=== PATIENT | female | born 1945 | race Caucasian/White ===

== ENCOUNTER 2021-05-31 09:54 | Inpatient (IN) | payer OTHER ==
--- NOTE | 2021-05-31 10:46 | ER ---
Nurse's Notes [facility] Name: Bill Deal Age: 75 yrs Sex: Female : 1945 Arrival Date: 05/31/2021 Time: 09:56 Bed 8 Private MD: Diagnosis: Low back pain Presentation: 05/31 09:56 Chief complaint: EMS states: Low back pain x 1 month, called Dr. Taveras and he jl7 instructed pt to go to ER for admit. Pain 10/10 on arrival, gave 50 mcg Fentanyl IVP and pain now 3/10. Coronavirus screen: Vaccine status: Patient reports receiving the 2nd dose of the covid vaccine. Moderna At this time, the client does not indicate any symptoms associated with coronavirus-19. Ebola Screen: No symptoms or risks identified at this time. Initial Sepsis Screen: Does the patient meet any 2 criteria? No. Patient's initial sepsis screen is negative. Does the patient have a suspected source of infection? No. Patient's initial sepsis screen is negative. Risk Assessment: Do you want to hurt yourself or someone else? Patient reports no desire to harm self or others. Onset of symptoms was May 01, 2021. 09:56 Method Of Arrival: EMS: [facility] jl7 09:56 Acuity: UDAY 3 jl7 10:02 Care prior to arrival: Medication(s) given: zofran 4 mg, 50 mcg fentanyl IV initiated. jl7 in the right antecubital area, Glucose check: 177. Triage Assessment: 10:03 General: Appears in no apparent distress. uncomfortable, Behavior is calm, cooperative, jl7 appropriate for age. Pain: Complains of pain in low back area Pain does not radiate. Pain currently is 3 out of 10 on a pain scale. at worst was 10 out of 10 on a pain scale. Neuro: Level of Consciousness is awake, alert, obeys commands, Oriented to person, place, time, situation. Cardiovascular: Patient's skin is warm and dry. Respiratory: Airway is patent Respiratory effort is even, unlabored, Respiratory pattern is regular, symmetrical. Derm: Skin is pink, warm \T\ dry. Musculoskeletal: Swelling absent. Historical: - Allergies: 10:03 PENICILLINS; jl7 - Home Meds: 10:03 duloxetine oral [Active]; [place] Oral [Active]; levetiracetam oral [Active]; ropinirole jl7 oral [Active]; Tramadol Oral [Active]; - PMHx: 10:03 restless leg syndrome; jl7 - Immunization history:: Adult Immunizations up to date. - Social history:: Smoking status: Patient denies any tobacco usage or history of. Screenin:36 Abuse screen: Denies threats or abuse. Denies injuries from another. Nutritional jl7 screening: No deficits noted. Tuberculosis screening: No symptoms or risk factors identified. Fall Risk IV access (20 points). Total Muro Fall Scale indicates No Risk (0-24 pts). Assessment: 10:36 General: See triage assessment. jl7 Vital Signs: 09:56 BP 173 / 67; Pulse 92; Resp 18; Temp 98.3; Pulse Ox 92% ; Weight 81.65 kg; Pain 3/10; jl7 10:55 BP 177 / 80; Pulse 88; Resp 19; Pulse Ox 97% ; jl7 13:30 BP 174 / 74; Pulse 85; Resp 15; Pulse Ox 98% ; jl7 ED Course: 09:56 Patient arrived in ED. jl7 10:01 Triage completed. jl7 10:02 Nicho Mata RN is Primary Nurse. jl7 10:03 Arm band placed on right wrist. jl7 10:08 Logan Park MD is Attending Physician. sp3 10:36 Patient has correct armband on for positive identification. Bed in low position. Call jl7 light in reach. Side rails up X2. Pulse ox on. NIBP on. Warm blanket given. 10:45 Qamar Taveras MD is Hospitalizing Provider. sp3 10:55 Initial lab(s) drawn, by ri, sent to lab. Maintain EMS IV. Dressing intact. Good blood jl7 return noted. Site clean \T\ dry. Gauge \T\ site: 20 R AC. 13:48 No provider procedures requiring assistance completed. Patient admitted, IV remains in jl7 place. intact, No redness/swelling at site. Administered Medications: 11:12 Drug: Zofran (Ondansetron) 4 mg Route: IVP; Site: right forearm; bp 13:48 Follow up: Response: No adverse reaction jl7 11:12 Drug: Dilaudid (HYDROmorphone) 1 mg Route: IVP; Site: right forearm; bp 11:40 Follow up: Response: No adverse reaction; Pain is decreased jl7 Outcome: 10:45 Decision to Hospitalize by Provider. sp3 13:48 Admitted to Med/surg accompanied by gilmar, via stretcher, room 209, with chart, Report jl7 called to JC Mariano 13:48 Condition: stable 13:48 Discharge instructions given to patient, family, Instructed on the need for admit, Demonstrated understanding of instructions. 14:18 Patient left the ED. [email or web address] Signatures: Nicho Mata RN RN jl7 John Grullon, RN RN bp Logan Park MD MD sp3 Corrections: (The following items were deleted from the chart) 10:06 10:03 PMHx: resless leg; jl7 jl7
--- NOTE | 2021-05-31 10:46 | EDPHYS ---
Physician Documentation [facility] Name: Bill Deal Age: 75 yrs Sex: Female : 1945 Arrival Date: 05/31/2021 Time: 09:56 Bed 8 Private MD: ED Physician Logan Park HPI: 05/31 10:41 This 75 yrs old Female presents to ER via EMS with complaints of Back Pain. [facility] 10:41 35-year-old female with chronic back pain over the last several weeks was been seen at [address] with a negative MRI this was here approximately 5 days ago with negative x-rays and work-up now returns for continued back pain. Spoke with Dr. Taveras her PCP who will be admitting her for further work-up. Patient received fentanyl via EMS which has relieved her pain at this time. Patient is pain-free at the moment. On review of systems, patient denies loss of bowel or bladder, neuro symptoms, chest pain, abdominal pain, any other symptoms at this time.. Historical: - Allergies: 10:03 PENICILLINS; jl7 - Home Meds: 10:03 duloxetine oral [Active]; [place] Oral [Active]; levetiracetam oral [Active]; ropinirole jl7 oral [Active]; Tramadol Oral [Active]; - PMHx: 10:03 restless leg syndrome; jl7 - Immunization history:: Adult Immunizations up to date. - Social history:: Smoking status: Patient denies any tobacco usage or history of. ROS: 10:43 Constitutional: Negative for fever, chills, and weight loss, Cardiovascular: Negative sp3 for chest pain, palpitations, and edema, Respiratory: Negative for shortness of breath, cough, wheezing, and pleuritic chest pain, Abdomen/GI: Negative for abdominal pain, nausea, vomiting, diarrhea, and constipation, : Negative for injury, bleeding, discharge, and swelling, Neuro: Negative for headache, weakness, numbness, tingling, and seizure, Psych: Negative for depression, anxiety, suicide ideation, homicidal ideation, and hallucinations, Endocrine: Negative for neck swelling, polydipsia, polyuria, polyphagia, and marked weight changes, Hematologic/Lymphatic: Negative for swollen nodes, abnormal bleeding, and unusual bruising. 10:43 All other systems are negative. Exam: 10:43 Constitutional: This is a well developed, well nourished patient who is awake, alert, sp3 and in no acute distress. Head/Face: Normocephalic, atraumatic. Chest/axilla: Normal chest wall appearance and motion. Nontender with no deformity. No lesions are appreciated. Cardiovascular: Regular rate and rhythm with a normal S1 and S2. No gallops, murmurs, or rubs. Normal PMI, no JVD. No pulse deficits. Respiratory: Lungs have equal breath sounds bilaterally, clear to auscultation and percussion. No rales, rhonchi or wheezes noted. No increased work of breathing, no retractions or nasal flaring. Abdomen/GI: Soft, non-tender, with normal bowel sounds. No distension or tympany. No guarding or rebound. No evidence of tenderness throughout. Neuro: Awake and alert, GCS 15, oriented to person, place, time, and situation. Cranial nerves II-XII grossly intact. Motor strength 5/5 in all extremities. Sensory grossly intact. Cerebellar exam normal. Normal gait. 10:43 Back: Patient was not rolled over to assess the lower back secondary to her being pain-free at the moment. Patient requested that she be left alone.. Vital Signs: 09:56 BP 173 / 67; Pulse 92; Resp 18; Temp 98.3; Pulse Ox 92% ; Weight 81.65 kg; Pain 3/10; jl7 10:55 BP 177 / 80; Pulse 88; Resp 19; Pulse Ox 97% ; jl7 13:30 BP 174 / 74; Pulse 85; Resp 15; Pulse Ox 98% ; jl7 MDM: 10:26 Patient medically screened. sp3 10:44 Data reviewed: vital signs, nurses notes. ED course: Discussed with patient's PCP who sp3 states that he will be faxing over admission orders to the household refrigerator mechanic. Routine labs have been placed and patient is pain-free at the moment. No other intervention is indicated in the ER and further work-up will be handled in the inpatient side.. 05/31 10:38 Order name: Basic Metabolic Panel sp3 05/31 10:38 Order name: CBC with Diff sp3 05/31 10:38 Order name: Hepatic Function sp3 05/31 10:38 Order name: Lipase sp3 05/31 11:07 Order name: COVID-19/FLU A+B/RSV EDMS 05/31 10:38 Order name: IV Saline Lock; Complete Time: 10:55 sp3 05/31 10:38 Order name: Labs collected and sent; Complete Time: 10:55 sp3 Administered Medications: 11:12 Drug: Zofran (Ondansetron) 4 mg Route: IVP; Site: right forearm; bp 13:48 Follow up: Response: No adverse reaction jl7 11:12 Drug: Dilaudid (HYDROmorphone) 1 mg Route: IVP; Site: right forearm; bp 11:40 Follow up: Response: No adverse reaction; Pain is decreased jl7 Disposition Summary: 05/31/21 10:45 Hospitalization Ordered Hospitalization Status: Observation sp3 Provider: Qamar Taveras sp3 Location: Telemetry/MedSurg (observation) sp3 Condition: Stable sp3 Problem: new sp3 Symptoms: have worsened sp3 Bed/Room Type: Standard sp3 Room Assignment: [facility](05/31/21 13:23) Diagnosis - Low back pain sp3 Forms: - Medication Reconciliation Form sp3 - SBAR form sp3 Signatures: Dispatcher [employer] EDMS Cecily Pacheco RN RN ss Nicho Mata RN RN John Zuluaga, RN RN Logan Nguyễn MD MD sp3 Corrections: (The following items were deleted from the chart) 10:06 10:03 PMHx: resless leg; jl7 jl7 11:07 10:55 CORONAVIRUS+MR.LAB.DAVE ordered. EDMS EDMS 13:23 10:45 sp3 ss
[2021-05-31 11:09] LABS: Absolute Lymphocytes (CBC) 1.6 K/uL (0.7-4.9); Basophils % 0.3 % (0-1.3); Hematocrit 39.6 % (36.0-45.0); Lymphocytes % 13.7 % (15.3-44.8); MPV 8.2 fL (7.6-11.3); RBC Red Blood Cell Count 4.59 M/uL (3.86-4.86)
[2021-05-31] MEDS ORDERED: ONDANSETRON 4 MG/2 ML VIAL ONE (11:34)
[2021-05-31] MEDS ORDERED: HYDROMORPHONE HCL 1 MG/ML INJ ONE (11:34)
[2021-05-31 11:47] LABS: SARS-COV-2 RT PCR NEGATIVE (NEGATIVE)
[2021-05-31 12:08] LABS: Bilirubin Direct 0.1 mg/dL (0-0.2); Bilirubin Total 0.4 mg/dL (0.2-1.0); Potassium 4.2 mmol/L (3.5-5.1); Protein, Total 7.2 g/dL (6.4-8.2)
[2021-05-31] MEDS ORDERED: HYDROMORPHONE HCL 1 MG/ML INJ IV PRN (15:15)
[2021-05-31] MEDS ORDERED: GLUCAGON 1 MG/VIAL IM PRN (15:40)
[2021-05-31] MEDS ORDERED: D50W 25 GM/50 ML SYRINGE IV PRN (15:40)
[2021-05-31] MEDS ORDERED: ONDANSETRON 4 MG (ODT) TAB PO PRN (16:00)
[2021-05-31] MEDS ORDERED: ACETAMINOPHEN 325 MG TABLET PO PRN (16:00)
[2021-05-31] MEDS ORDERED: DIPHENHYDRAMINE 25 MG TAB/CAP PO PRN (16:00)
[2021-05-31] MEDS ORDERED: LOPERAMIDE HCL 2 MG CAPSULE PO PRN (16:00)
[2021-05-31] MEDS ORDERED: POLYETHYL GLY 3350 17 GM/DOSE PO PRN (16:00)
[2021-05-31] MEDS ORDERED: ONDANSETRON 4 MG/2 ML VIAL IV PRN (16:00)
[2021-05-31] MEDS ORDERED: MAGIC MOUTHWASH 180 ML BTL PO PRN (16:29)
[2021-05-31] MEDS ORDERED: LORAZEPAM 0.5 MG TABLET PO PRN (16:29)
[2021-05-31] MEDS: INSULIN -REGULAR HUMAN 50 UNIT/0.5 ML ML SQ SCH ×2 (16:30→22:15)
--- NOTE | 2021-05-31 16:58 | RAD REPORT ---
EXAM DESCRIPTION: CT - Abdomen Pelvis W Contrast - 05/31/2021 4:35 pm CLINICAL HISTORY: Abdominal pain/back pain COMPARISON: none. TECHNIQUE: Computed axial tomography of the abdomen pelvis was obtained. 100 cc Isovue-300 was admin istered intravenously. Oral contrast was not requested which limits evaluation of bowel. All CT scans are performed using dose optimization technique as appropriate and may include automated exposure control or mA/KV adjustment according to patient size. FINDINGS: The hepatic cyst. Cholecystectomy. Spleen, pancreas, adrenal and kidneys appear unremarkable. There is no evidence of diverticulitis. Hysterectomy. No adnexal mass. Small umbilical hernia IMPRESSION: No acute abnormality is displayed.
--- NOTE | 2021-05-31 16:59 | RAD REPORT ---
EXAM DESCRIPTION: Rolando Single View05/31/2021 4:15 pm CLINICAL HISTORY: sob COMPARISON: 2019 FINDINGS: The lungs appear clear of acute infiltrate. The heart is normal size IMPRESSION: No acute abnormalities displayed
[2021-05-31] MEDS: NACHLORIDE 0.45% 1,000 ML IV SCH (17:19)
[2021-05-31 19:00] LABS: Phosphorus 3.6 mg/dL (2.5-4.9); Thyroid Stimulating Hormone 0.877 uIU/mL (0.360-3.740)
[2021-05-31] MEDS ORDERED: METAXALONE 800 MG TAB PO PRN (19:00)
[2021-05-31] MEDS ORDERED: INFLUENZA VACCINE (for 6+ mo) 0.5 ML DOSE IMVAC ONE (20:00)
[2021-05-31] MEDS: dexAMETHasone 10 MG/ML VIAL IV SCH (20:45)
[2021-05-31] MEDS ORDERED: ROPINIROLE HCL 2 MG PO SCH (21:00)
[2021-05-31] MEDS ORDERED: HOME MED 1 EA UNK (Trazodone Hcl [Trazodone Hcl] 100 MG Tablet) PO SCH (21:00)
[2021-05-31] MEDS: LEVETIRACETAM 500 MG PO SCH (21:00)
[2021-05-31] MEDS ORDERED: HOME MED 1 EA UNK (Duloxetine Hcl [Duloxetine Hcl] 60 MG Capsule.Dr) PO SCH (21:00)
[2021-05-31] MEDS: TRAZODONE 150 MG TAB PO SCH (21:08)
[2021-05-31] MEDS: HYDROCODONE/APAP 10/325 TAB PO SCH (21:08)
[2021-05-31] MEDS: ROPINIROLE HCL 1 MG TAB PO SCH (21:10)
[2021-05-31] MEDS: DULOXETINE 30 MG CAP PO SCH (21:10)
[2021-05-31] MEDS: ENOXAPARIN 40 MG/0.4 ML SQ SCH (22:14)
[2021-05-31] MEDS ORDERED: dexAMETHasone 4 MG/ML VIAL ONE (22:22)
[2021-06-01] MEDS: dexAMETHasone 10 MG/ML VIAL IV SCH
[2021-06-01] MEDS ORDERED: dexAMETHasone 4 MG/ML VIAL ONE (00:43)
[2021-06-01] MEDS: dexAMETHasone 4 MG/ML VIAL IV SCH ×4 (05:39→23:48)
[2021-06-01 05:53] LABS: Absolute Lymphocytes (CBC) 0.5 K/uL (0.7-4.9); Basophils % 0.1 % (0-1.3); Hematocrit 39.6 % (36.0-45.0); Lymphocytes % 4.6 % (15.3-44.8); MPV 8.2 fL (7.6-11.3); RBC Red Blood Cell Count 4.56 M/uL (3.86-4.86)
[2021-06-01 06:41] LABS: Blood Morphology Comment NOT SEEN (NOT SEEN); Platelet Estimate ADEQ; White Blood Cell Scan OK (OK)
[2021-06-01] MEDS: INSULIN -REGULAR HUMAN 50 UNIT/0.5 ML ML SQ SCH ×4 (07:30→20:42)
[2021-06-01] MEDS: ROPINIROLE HCL 1 MG TAB PO SCH ×2 (08:53→20:40)
[2021-06-01] MEDS: ENOXAPARIN 40 MG/0.4 ML SQ SCH (08:53)
[2021-06-01] MEDS: HYDROCODONE/APAP 10/325 TAB PO SCH ×2 (08:54→20:41)
[2021-06-01] MEDS: DULOXETINE 30 MG CAP PO SCH ×2 (08:57→20:41)
[2021-06-01] MEDS ORDERED: ENOXAPARIN 40 MG/0.4 ML SQ SCH (09:00)
--- NOTE | 2021-06-01 12:35 | P.HP ---
Certification for Inpatient Patient admitted to: Observation With expected LOS: <2 Midnights Practitioner: I am a practitioner with admitting privileges, knowledge of patient current condition, hospital course, and medical plan of care. Services: Services provided to patient in accordance with Admission requirements found in Title 42 Section 412.3 of the Code of Federal Regulations Patient History Date of Service: 05/31/21 Reason for admission: SEVERE LOW BACK PAIN. History of Present Illness: CARINE IS DECONDITIONED DIABETIC WITH SJOGREN LIKE SYNDROME, RESTLESS LEG SYNDROME AND COMES WITH SEVERE LOW BACK PAIN. SHE ABOUT TWO MONTHS AGO HAD SEVERE PAIN AFTER SHE TRIED TO PUSH HER FURNITURE WITH HER BACK. SINCE THEN SHE HAS BEEN TO ER MANY TIMES, HAS HAD SEROID SHOTS, PACKS, GABAPENTIN AND NARCOTICS WITH NO HELP. SHE CAN'T TURN FROM SIDE TO SIDE WITHOUT SEVERE PAIN AND SHE CAN'T WALK. CALLED ME CRYING YESTERDAY FOR HELP. I SAW HER LAST NIGHT BUT DUE TO MEDITECH FAILURE I COULD NOT DOCUMENT. Allergies promethazine HCl [From Phenergan] Allergy (Verified 03/12/15 11:05) "made me crazy" Home medications list reviewed: Yes Home Medications: Ropinirole HCl [Requip*] 3 mg PO BID 03/12/15 Duloxetine HCl 1 cap PO BID 08/06/19 Hydrocodone/Acetaminophen [Hydrocodon-Acetaminophn 10-325] 0.5 tab PO BID 05/31/21 Levetiracetam [Keppra] 500 mg PO BEDTIME 05/31/21 Meloxicam [Mobic] 7.5 mg PO DAILY PRN 05/31/21 Metaxalone [Skelaxin] 800 mg PO DAILY PRN 05/31/21 Trazodone HCl 1.5 tab PO BEDTIME 05/31/21 methocarbamoL [Methocarbamol] 500 mg PO BID 05/31/21 Insulin Glargine/Lixisenatide [Soliqua 100 Unit-33 Mcg/ml Pen] 30 units SQ DAILY 06/01/21 - Past Medical/Surgical History Has patient received pneumonia vaccine in the past: No Diabetic: Yes -: Gall bladder -: Hystrectomy - Social History Smoking Status: Former smoker Alcohol use: No CD- Drugs: No Caffeine use: No Place of Residence: Home Review of Systems 10-point ROS is otherwise unremarkable General: Weakness Musculoskeletal: Back Pain Physical Examination - Vital Signs Temperature: 97.3 F Blood Pressure: 153/76 Pulse: 96 Respirations: 15 Pulse Ox (%): 93 - Physical Exam General: Oriented x3, Moderate distress, Severe distress, Obese HEENT: Atraumatic, PERRLA, Mucous membr. moist/pink, EOMI, Sclerae nonicteric Neck: Supple, 2+ carotid pulse no bruit, No LAD, Without JVD or thyroid abnormality Respiratory: Clear to auscultation bilaterally, Normal air movement Cardiovascular: Regular rate/rhythm, Normal S1 S2 Gastrointestinal: Normal bowel sounds, No tenderness Musculoskeletal: No tenderness, Tenderness (TENDER SI JOINTS BOTH SIDES. ) Integumentary: No rashes Neurological: Normal gait, Normal speech, Normal tone, Normal affect, Other (SLR POS BOTH SIDES. SHE CAN'T LIFT HER L LEG OFF THE BED.), Abnormal strength Lymphatics: No axilla or inguinal lymphadenopathy Assessment and Plan - Problems (Diagnosis) (1) Lumbar radiculopathy Current Visit: Yes Status: Chronic Plan: UNABLE TO IMPROVE MRI DONE IN [facility] SHOWS NERVE IMPINGEMENT BUT NO SPINAL STENOSIS. WILL ORDER BONE SCAN TO RULE OUT INSUFFICIENCY FRACTURES. NEED[place] PT [place]. TALKED TO . HE CAN'T HANDLE HER AT HOME. (2) Diabetes Current Visit: No Status: Chronic Plan: NON COMPLIANT, OBESE DIABETIC. WILL CHECK A1C. 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 NO COMMISSION AGENT LIVESTOCK IS ABLE TO PREVENT THESE ULCERS THAT START WITH INFLAMMATORY NODULES. I HAD HER SEE THE ENT ALSO FOR SJOGREN'S BUT BLOOD TEST IS NEGATIVE AND SHE CONTINUES TO HAVE PAINFUL PAROTIDS. ENT IS NOT ABLE TO DO ANYTHING FOR IT. (4) Polyarthralgia Current Visit: Yes Status: Chronic Plan: SHE HAS BEEN SENT TO RADIO INSTALLER [employer] A FEW TIMES. SHE HAS CANCELED ALL HER APTS WITH DR. DE LA CRUZ. - Advance Directives Does patient have a Living Will: No Does patient have a Durable POA for Healthcare: Yes
--- NOTE | 2021-06-01 12:47 | P.PN ---
Subjective Date of Service: 06/01/21 Chief Complaint: SEVERE LOW BACK PAIN. Subjective: Improving SHE IS LITTLE BETTER IN PAIN. SHE STILL HAS LOT OF PAIN WITH ANY MOVEMENT. ANNEMARIE FROM PT DID EVAL AND ADVISED SNF. Physical Examination - Vital Signs Temperature: 97.3 F Blood Pressure: 153/76 Pulse: 96 Respirations: 15 Pulse Ox (%): 93 - Physical Exam General: Oriented x3, Moderate distress, Obese HEENT: Atraumatic, PERRLA, EOMI Neck: Supple, JVD not distended Respiratory: Clear to auscultation bilaterally, Normal air movement Cardiovascular: Regular rate/rhythm, Normal S1 S2 Gastrointestinal: Normal bowel sounds, No tenderness Musculoskeletal: No tenderness Integumentary: No rashes Neurological: Normal speech, Normal tone, Normal affect Lymphatics: No axilla or inguinal lymphadenopathy - Studies Medications List Reviewed: Yes Assessment And Plan - Current Problems (Diagnosis) (1) Lumbar radiculopathy Current Visit: Yes Status: Chronic Plan: UNABLE TO IMPROVE MRI DONE IN [facility] SHOWS NERVE IMPINGEMENT BUT NO SPINAL STENOSIS. WILL ORDER BONE SCAN TO RULE OUT INSUFFICIENCY FRACTURES. NEEDS PT AT [place]. TALKED TO . HE CAN'T HANDLE HER AT HOME. CONTINUE IV STEROIDS. CONT PT. WE ARE WAITING FOR [facility]id[employer] TO DECIDE ABOUT PLACEMENT. SHE DOES NOT HAVE ANY INPATIENT DIAGNOSIS. (2) Diabetes Current Visit: No Status: Chronic Plan: NON COMPLIANT, OBESE DIABETIC. WILL CHECK A1C. 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 NO TEA TREE FARMER IS ABLE TO PREVENT THESE ULCERS THAT START WITH INFLAMMATORY NODULES. I HAD HER SEE THE ENT ALSO FOR SJOGREN'S BUT BLOOD TEST IS NEGATIVE AND SHE CONTINUES TO HAVE PAINFUL PAROTIDS. ENT IS NOT ABLE TO DO ANYTHING FOR IT. (4) Polyarthralgia Current Visit: Yes Status: Chronic Plan: SHE HAS BEEN SENT TO MEDICAL REFERRAL COORDINATOR A FEW TIMES. SHE HAS CANCELED ALL HER APTS WITH DR. DE LA CRUZ.
[2021-06-01] MEDS: INSULIN GLARGINE SQ SCH (13:35)
[2021-06-01] MEDS: LIXISENATIDE SQ SCH (13:35)
[2021-06-01 15:18] LABS: Urine Appearance CLEAR (Clear); Urine Bilirubin NEGATIVE (Negative); Urine Blood NEGATIVE (Negative); Urine Color YELLOW (Yellow); Urine Glucose TRACE (Negative); Urine Microscopic Reflex ORDER UMIC; Urine Protein NEGATIVE (Negative); Urine Specific Gravity >=1.030 (1.005-1.030); Urine pH 5.5 (5.0-7.0)
[2021-06-01 16:48] LABS: Potassium 4.2 mmol/L (3.5-5.1)
[2021-06-01 17:59] LABS: Urine Bacteria >50 /HPF (<20); Urine RBC <5 /HPF (NONE SEEN)
[2021-06-01] MEDS ORDERED: PNEUMOCOCCAL VACCINE 0.5 ML IMVAC ONE (20:00)
[2021-06-01] MEDS: levETIRAcetam 500 MG TAB PO SCH (20:40)
[2021-06-01] MEDS: TRAZODONE 150 MG TAB PO SCH (20:40)
[2021-06-01] MEDS: LEVETIRACETAM 500 MG PO SCH (21:08)
[2021-06-01] MEDS: NACHLORIDE 0.45% 1,000 ML IV SCH (23:50)
[2021-06-02] MEDS: dexAMETHasone 4 MG/ML VIAL IV SCH (05:18)
[2021-06-02 06:20] LABS: Absolute Lymphocytes (CBC) 0.7 K/uL (0.7-4.9); Basophils % 0.2 % (0-1.3); Hematocrit 36.7 % (36.0-45.0); Lymphocytes % 3.5 % (15.3-44.8); MPV 8.4 fL (7.6-11.3); RBC Red Blood Cell Count 4.27 M/uL (3.86-4.86)
[2021-06-02 06:35] LABS: Magnesium 2.2 mg/dL (1.8-2.4); Potassium 4.6 mmol/L (3.5-5.1)
[2021-06-02] MEDS: INSULIN -REGULAR HUMAN 50 UNIT/0.5 ML ML SQ SCH ×4 (07:30→21:00)
[2021-06-02 08:59] LABS: Blood Morphology Comment NOT SEEN (NOT SEEN); Platelet Estimate ADEQ
[2021-06-02] MEDS ORDERED: INSULIN GLARGINE SQ SCH (09:00)
[2021-06-02] MEDS: LIXISENATIDE SQ SCH (09:00)
[2021-06-02] MEDS ORDERED: LIXISENATIDE SQ SCH (09:00)
[2021-06-02] MEDS: INSULIN GLARGINE SQ SCH (09:00)
[2021-06-02] MEDS ORDERED: FENTANYL 25 MCG/PATCH TD SCH (09:00)
[2021-06-02] MEDS: HYDROCODONE/APAP 10/325 TAB PO SCH ×2 (09:35→21:12)
[2021-06-02] MEDS: DULOXETINE 30 MG CAP PO SCH ×2 (09:38→21:10)
[2021-06-02] MEDS: ROPINIROLE HCL 1 MG TAB PO SCH ×2 (09:39→21:09)
[2021-06-02] MEDS: ENOXAPARIN 40 MG/0.4 ML SQ SCH (09:39)
--- NOTE | 2021-06-02 13:11 | P.PN ---
Subjective Date of Service: 06/02/21 Chief Complaint: CONFUSION Subjective: Improving SHE IS LITTLE BETTER IN PAIN. SHE STILL HAS LOT OF PAIN WITH ANY MOVEMENT. ANNEMARIE FROM PT DID EVAL AND ADVISED SNF. SHE SAYS SHE HAS NO PAIN TODAY. SHE IS MILDLY CONFUSED PULLED OUT HER IV. ON INSISTENCE OF HER DAUGHTER WHO IS HOSPICE NURSE WE HAD HER ON SMALL DOSE OF DILAUDID AND ATIVAN, THAT I AM STOPPING TODAY. WHEN I CAME TO SEE HER TODAY ASKED WHY I DID NOT COME YESTERDAY BUT ACTUALLY I DID AND IT WAS IN THE MORNING ABOUT 8 AM. HE HAD FORGOTTEN IT. HE IS IN TOO MUCH STRESS WITH 'S CHRONIC ILLNESS. THE DAUGHTER MAY CALLED ME TODAY ABOUT CONFUSION AND I EXPLAINED THAT MOST LIKELY IT IS FROM MEDS AND WE ARE STOPPING THEM TODAY. DR. VILLA ALSO CALLED 'S FRIEND WHO IS FRIEND OF DR. VILLA IS ASKING ABOUT PAIN CONTROL IN [place]. I EXPLAINED TO HIM THAT EVERYTHING IS BEING DONE. HE WILL CALL WORSHIP TO SEE IF SHE CAN BE TRANSFERRED. I TOLD HIM THAT SHE IS ON OBSERVATION AND HAS NO INPATIENT DIAGNOSIS. I ALSO EXPLAINED THIS TO DAUGHTER. SHE UNDERSTANDS AND SHE IS LOOKING AT [facility] FOR PLACEMENT. Review of Systems 10-point ROS is otherwise unremarkable General: Weakness Physical Examination - Vital Signs Temperature: 97.6 F Blood Pressure: 181/75 Pulse: 77 Respirations: 17 Pulse Ox (%): 95 - Physical Exam General: Oriented x2, Mild distress, Obese HEENT: Atraumatic, PERRLA, EOMI Neck: Supple, JVD not distended Respiratory: Clear to auscultation bilaterally, Normal air movement Cardiovascular: Regular rate/rhythm, Normal S1 S2 Gastrointestinal: Normal bowel sounds, No tenderness Musculoskeletal: No tenderness Integumentary: Other (CHRONIC SKIN CHANGES AND BIOPSY HAS BEEN DONE. ) Neurological: Normal speech, Normal tone, Normal affect Lymphatics: No axilla or inguinal lymphadenopathy - Studies Laboratory Data (last 24 hrs) 06/02/21 05:45: Sodium 137, Potassium 4.6, BUN 26 H, Creatinine 0.93, Glucose 266 H, Magnesium 2.2 06/02/21 05:45: WBC 21.10 H* D, Hgb 12.2, Hct 36.7, Plt Count 256 06/01/21 16:11: Sodium 138, Potassium 4.2, BUN 22 H, Creatinine 1.03, Glucose 253 H Medications List Reviewed: Yes Assessment And Plan - Current Problems (Diagnosis) (1) Lumbar radiculopathy Current Visit: Yes Status: Chronic Plan: TODAY SHE WAS ABLE TO STAND UP. THIS IS A MAJOR CHANGE COMPARED TO TWO DAYS AGO. NOW WE ARE STOPPING DILAUDID, ATIVAN AND DEXAMETHASONE TO REDUCE CONFUSION. WBC COUNT IS HIGH BECAUSE OF STEROIDS. THERE IS NO SIGN OF INFECTION. (2) Diabetes Current Visit: No Status: Chronic Plan: NON COMPLIANT, OBESE DIABETIC. WILL CHECK A1C. 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 NO PATIENT CARE DIRECTOR IS ABLE TO PREVENT THESE ULCERS THAT START WITH INFLAMMATORY NODULES. I HAD HER SEE THE ENT ALSO FOR SJOGREN'S BUT BLOOD TEST IS NEGATIVE AND SHE CONTINUES TO HAVE PAINFUL PAROTIDS. ENT IS NOT ABLE TO DO ANYTHING FOR IT. (4) Polyarthralgia Current Visit: Yes Status: Chronic Plan: SHE HAS BEEN SENT TO DIRECTOR HOME A FEW TIMES. SHE HAS CANCELED ALL HER APTS WITH DR. DE LA CRUZ. (5) Altered mental state Current Visit: Yes Status: Acute Plan: MEDICATION RELATED. SHE HAD TO HAVE MEDS TO CONTROL PAIN. DAUGHTER ALSO INSISTED ON THEM. NOW SHE IS CONFUSED AND THEY ARE MORE WORRIED. I ASKED THEM TO GIVE TIME FOR MEDS TO RUN OUT OF HER SYSTEM.
--- NOTE | 2021-06-02 14:52 | RAD REPORT ---
EXAM DESCRIPTION: MRI - Brain Wo Cont - 06/02/2021 2:31 pm CLINICAL HISTORY: confusion Headache, drowsiness COMPARISON: Abdomen Pelvis W Contrast dated 05/31/2021 TECHNIQUE: Multi-sequence, multiplanar MR imaging of the brain was performed without contrast. FINDINGS: No intracranial hemorrhage, hydrocephalus or extra-axial fluid collections.Mild brain atro phy with mild periventricular and deep white matter chronic microvascular ischemic changes. No edema or shift of midline structures. No findings to suspect brain mass. DWI is negative for acute CVA. Midline structures are normally formed. Mild right mastoid effusion. Paranasal sinuses are clear. IMPRESSION: Negative for acute CVA or other acute intracranial process. Mild right mastoid effusion.
[2021-06-02] MEDS: levETIRAcetam 500 MG TAB PO SCH (21:00)
[2021-06-02] MEDS: LEVETIRACETAM 500 MG PO SCH (21:00)
[2021-06-02] MEDS: TRAZODONE 150 MG TAB PO SCH (21:10)
[2021-06-03 04:57] LABS: Absolute Lymphocytes (CBC) 2.4 K/uL (0.7-4.9); Basophils % 0.1 % (0-1.3); Hematocrit 38.6 % (36.0-45.0); Lymphocytes % 13.8 % (15.3-44.8); MPV 8.3 fL (7.6-11.3); RBC Red Blood Cell Count 4.43 M/uL (3.86-4.86)
[2021-06-03 05:06] LABS: Magnesium 2.4 mg/dL (1.8-2.4); Potassium 4.3 mmol/L (3.5-5.1)
[2021-06-03] MEDS: INSULIN -REGULAR HUMAN 50 UNIT/0.5 ML ML SQ SCH ×5 (07:30→21:53)
[2021-06-03] MEDS: ENOXAPARIN 40 MG/0.4 ML SQ SCH (08:47)
[2021-06-03] MEDS: ROPINIROLE HCL 1 MG TAB PO SCH ×2 (08:47→21:26)
[2021-06-03] MEDS: CIPROFLOXACIN HCL 500 MG TAB PO SCH ×2 (08:48→21:26)
[2021-06-03] MEDS: DULOXETINE 30 MG CAP PO SCH ×2 (08:48→21:26)
[2021-06-03] MEDS: HYDROCODONE/APAP 10/325 TAB PO SCH ×2 (08:48→21:27)
[2021-06-03] MEDS: NACHLORIDE 0.45% 1,000 ML IV SCH (08:49)
[2021-06-03] MEDS: LIXISENATIDE SQ SCH (08:50)
[2021-06-03] MEDS: INSULIN GLARGINE SQ SCH (08:50)
--- NOTE | 2021-06-03 12:36 | P.PN ---
Subjective Date of Service: 06/03/21 Chief Complaint: CONFUSION Subjective: Improving SHE IS LITTLE BETTER IN PAIN. SHE STILL HAS LOT OF PAIN WITH ANY MOVEMENT. ANNEMARIE FROM PT DID EVAL AND ADVISED SNF. SHE SAYS SHE HAS NO PAIN TODAY. SHE IS MILDLY CONFUSED PULLED OUT HER IV. ON INSISTENCE OF HER DAUGHTER WHO IS HOSPICE NURSE WE HAD HER ON SMALL DOSE OF DILAUDID AND ATIVAN, THAT I AM STOPPING TODAY. WHEN I CAME TO SEE HER TODAY ASKED WHY I DID NOT COME YESTERDAY BUT ACTUALLY I DID AND IT WAS IN THE MORNING ABOUT 8 AM. HE HAD FORGOTTEN IT. HE IS IN TOO MUCH STRESS WITH 'S CHRONIC ILLNESS. THE DAUGHTER MAY CALLED ME TODAY ABOUT CONFUSION AND I EXPLAINED THAT MOST LIKELY IT IS FROM MEDS AND WE ARE STOPPING THEM TODAY. DR. VILLA ALSO CALLED 'S FRIEND WHO IS FRIEND OF DR. VILLA IS ASKING ABOUT PAIN CONTROL IN [place]. I EXPLAINED TO HIM THAT EVERYTHING IS BEING DONE. HE WILL CALL [facility] TO SEE IF SHE CAN BE TRANSFERRED. I TOLD HIM THAT SHE IS ON OBSERVATION AND HAS NO INPATIENT DIAGNOSIS. I ALSO EXPLAINED THIS TO DAUGHTER. SHE UNDERSTANDS AND SHE IS LOOKING AT [facility] FOR PLACEMENT. SHE IS LOT BETTER NOW. SHE HAS NO PAIN. SHE IS WALKING WITH PT. APOLOGIZED HE HAS HAD TOO MANY ADVISES FROM TOO MANY PEOPLE TALKING TO HIM. I ADVISED TO THE WHOLE FAMILY THAT GIVE HER TIME TO RECOVER AND SHE IS RECOVERING FROM DELIRIUM THAT HAPPENED FROM MEDICINES. SHE IS OFF MEDS THAT WERE ASKED BY THE DAUGHTER. SHE IS OFF STEROIDS I GAVE HER SHE IS NOT TENDER IN SI JOINTS ANY LONGER. NOW THE WANT TO TAKE HER HOME AND NOT TO SNF. Physical Examination - Vital Signs Temperature: 97 F Blood Pressure: 158/71 Pulse: 86 Respirations: 18 Pulse Ox (%): 92 - Physical Exam General: Oriented x3, Mild distress, Obese HEENT: Atraumatic, PERRLA, EOMI Neck: Supple, JVD not distended Respiratory: Clear to auscultation bilaterally, Normal air movement Cardiovascular: Regular rate/rhythm, Normal S1 S2 Gastrointestinal: Normal bowel sounds, No tenderness Musculoskeletal: No tenderness Integumentary: No rashes Neurological: Normal speech, Normal tone, Normal affect Lymphatics: No axilla or inguinal lymphadenopathy - Studies Microbiology Data (last 24 hrs): 06/01/21 Unknown Clean Catch Urine [place] Count - Final >100,000 CFU/ML. 06/01/21 Unknown Clean Catch Urine - Final Escherichia Coli Klebsiella Pneumoniae Gram Neg [place]tof Medications List Reviewed: Yes Assessment And Plan - Current Problems (Diagnosis) (1) Lumbar radiculopathy Current Visit: Yes Status: Chronic Plan: TODAY SHE WAS ABLE TO STAND UP. THIS IS A MAJOR CHANGE COMPARED TO TWO DAYS AGO. NOW WE ARE STOPPING DILAUDID, ATIVAN AND DEXAMETHASONE TO REDUCE CONFUSION. WBC COUNT IS HIGH BECAUSE OF STEROIDS. THERE IS NO SIGN OF INFECTION. (2) Diabetes Current Visit: No Status: Chronic Plan: NON COMPLIANT, OBESE DIABETIC. WILL CHECK A1C. 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 NO [employer] EQUIPMENT OPERATOR IS ABLE TO PREVENT THESE ULCERS THAT START WITH INFLAMMATORY NODULES. I HAD HER SEE THE ENT ALSO FOR SJOGREN'S BUT BLOOD TEST IS NEGATIVE AND SHE CONTINUES TO HAVE PAINFUL PAROTIDS. ENT IS NOT ABLE TO DO ANYTHING FOR IT. (4) Polyarthralgia Current Visit: Yes Status: Chronic Plan: SHE HAS BEEN SENT TO [facility] A FEW TIMES. SHE HAS CANCELED ALL HER APTS WITH DR. DE LA CRUZ. (5) Altered mental state Current Visit: Yes Status: Acute Plan: MEDICATION RELATED. SHE HAD TO HAVE MEDS TO CONTROL PAIN. DAUGHTER ALSO INSISTED ON THEM. NOW SHE IS CONFUSED AND THEY ARE MORE WORRIED. I ASKED THEM TO GIVE TIME FOR MEDS TO RUN OUT OF HER SYSTEM. (6) UTI (urinary tract infection) Current Visit: Yes Status: Acute Plan: CIPRO PO BID. NOT CLEAR ABOUT ABX BUT WILL GIVE FOR A FEW DAYS.
--- NOTE | 2021-06-03 16:15 | CON ---
Consultation called by Dr. Taveras because of pain in the patient's right lower back and lower extremity. History Of Present Illness: Ms. Deal is a 75-year-old right-handed patient, who reportedly moved a table in her home 4 weeks ago. Her was not there to help. She said that she did not immediately feel pain, but the next day, began having severe pain in the right lower back radiating down the right lateral anterior thigh across the knee into the anterior and lateral leg into her foot. The pain would be aggravated by standing, ambulating, and somewhat relieved by lying down. She also gets pain when sitting on her toilet seat. This pain is in the back of the thigh and may radiate down the leg, but at times the pain is localized to the right gluteal region. Pain can be sudden, sharp, lancinating, radiating in nature. She has had by Dr. Duggan MRI of the lumbar spine, which did not show for the patient any significant nerve root or cord compression or fractures or disk rupture. She has been on pain patches, Cymbalta and has done physical therapy and the pain is somewhat improved. However, she still has significant pain when getting into certain positions. At [facility] she was admitted at [facility], she had abdomen and pelvis CT scan that showed no acute abnormalities. She had a small umbilical hernia. Brain MRI showed no acute ischemic or hemorrhagic stroke. There was mild right lung effusion. Past Medical History: Restless legs syndrome. Allergies: PENICILLIN. Medications: At home duloxetine, levetiracetam, ropinirole, and tramadol. Family History: Noncontributory. Social History: No alcohol, tobacco, or IV drug use. The patient lives with her . Physical Examination: Vital Signs: 158/71, pulse 86, respiratory rate 16, temperature 97, oxygen saturation 91% on room air. Ms. Deal is lying in bed. She is lying on the left side, in no acute distress. HEENT: She is normocephalic, atraumatic. Sclerae anicteric. Oropharynx is moist. Neck: Supple. Chest: Clear. Heart: Regular. Extremities: Show no edema, cyanosis, or clubbing. Neurologic: Alert, oriented to situation, place, and person. Cranial nerves 2 through 12 are intact. Motor examination, she has no focal weakness upper and lower extremities. Sensory exam, stocking-glove loss to light touch and temperature. Reflexes symmetrically depressed upper and lower extremities. Coordination intact. She was evaluated by physical therapist. She ambulated 30 feet 3 times with a rolling walker, had slow [place] and required contact guard assistance to minimal assistance. Laboratory Studies: Ms. Deal did have very elevated white blood cell count with 93% neutrophils, now improving. Her urinalysis showed positive nitrite, trace ketones, greater than 50 bacteria, 5-10 white blood cells. It was negative for esterase. Her COVID-19 test was negative. Kidney function unremarkable. Glucose range up to 334 and down to 117. Thyroid-stimulating hormone level normal range. B12 slightly elevated to 1243. Liver function studies show slightly elevated alkaline phosphatases, otherwise essentially unremarkable. Assessment: Ms. Deal is a 75-year-old patient with evidence of mild at least by history right L4-5 compression. In addition, she has sciatic compression, especially when sitting on hard surfaces on the right side. She does not have a stroke by exam or brain imaging with MRI. Plan: 1. Continue with topical analgesic. 2. Cymbalta. Current dose is okay. 3. May try Gralise up to 1800 mg daily as needed. 4. TENS unit may be helpful. 5. Traction therapy may be helpful. 6. The patient may require more aggressive treatment if her current regimen is not helpful and that may include pain management with injections or other treatment as necessary. CHRISTINA/GADIEL Voice ID: [id number] Report ID: [id number]
[2021-06-03] MEDS ORDERED: FORMULATION-R RECTAL 57GM PR PRN (16:21)
[2021-06-03] MEDS ORDERED: POLYETHYL GLY 3350 17 GM/DOSE PO PRN (18:00)
[2021-06-03 18:16] VITALS: BMI 35.0
[2021-06-03] MEDS: levETIRAcetam 500 MG TAB PO SCH (21:00)
[2021-06-03] MEDS: LEVETIRACETAM 500 MG PO SCH (21:00)
[2021-06-03] MEDS: TRAZODONE 150 MG TAB PO SCH (21:27)
[2021-06-04] MEDS: INSULIN -REGULAR HUMAN 50 UNIT/0.5 ML ML SQ SCH (07:30)
[2021-06-04 08:36] VITALS: O2SAT 92
[2021-06-04] MEDS: ROPINIROLE HCL 1 MG TAB PO SCH (08:54)
[2021-06-04] MEDS: HYDROCODONE/APAP 10/325 TAB PO SCH (08:55)
[2021-06-04] MEDS: DULOXETINE 30 MG CAP PO SCH (08:55)
[2021-06-04] MEDS: LIXISENATIDE SQ SCH (08:58)
[2021-06-04] MEDS: INSULIN GLARGINE SQ SCH (08:58)
[2021-06-04] MEDS: CIPROFLOXACIN HCL 500 MG TAB PO SCH (08:58)
[2021-06-04] MEDS: ENOXAPARIN 40 MG/0.4 ML SQ SCH (08:58)
[2021-06-04 09:07] VITALS: BP 105/62; TEMP 97
--- NOTE | 2021-06-04 21:18 | P.DS ---
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 SHE ABOUT TWO MONTHS AGO HAD SEVERE PAIN AFTER SHE TRIED TO PUSH HER FURNITURE WITH HER BACK. SINCE THEN SHE HAS BEEN TO ER MANY TIMES, HAS HAD SEROID SHOTS, PACKS, GABAPENTIN AND NARCOTICS WITH NO HELP. SHE CAN'T TURN FROM SIDE TO SIDE WITHOUT SEVERE PAIN AND SHE CAN'T WALK. CALLED ME CRYING YESTERDAY FOR HELP. I SAW HER LAST NIGHT BUT DUE TO MEDITECH FAILURE I COULD NOT DOCUMENT. Hospital Course: CARINE HAS CHRONIC ARTHRALGIA, MYALGIA, ENLARGED PAROTIDS BOTH SIDES, NEG SJOGREN STUDIES, SKIN BIOPSY FOR ULCERS TAT [place] SNONCONCLUSIVE COMES WITH BACK PAIN. IS NOT ABLE TO HANDLE HER. SHE IS DECONDITIONED, OBESE AND HAS BEEN TO PAIN DOCTORS, ORTHOPEDIC DOCTORS, GOT STEROID PACK A FEW TIMES , LYRICA, TRAMADOL AND NORCO WITH NO IMPROVEMENT. CALLS CRYING AND SO I ADMIT HER FOR INTRACTABLE PAIN. SHE IMPROVES OVER 3 DAYS. SHE GOT DISORIENTED WITH DILAUDID AND ATIVAN THAT WAS FROM MEDICATIONS. I STOPPED ALL MEDS THAT COULD CAUSE IT. SHE REMAINED PAINFREE AFTER I STOPPED STEROIDS ALSO WBC RAISED TO 21K WHICH I SUSPECT IS FROM STEROIDS. UA IS BORDERLINE POSITVE, I AM NOT SURE IF THAT IS REAL OR IS IT A BEDPAN SAMPLE INSTEAD OF STRAIGHT CATH SAMPLE. SHE IS STABLE TO GO HOME. APOLOGISED HE GOT TOO MANY PEOPLE INVOLVED THROUGH A FRIEND WHO IS FRIEND OF ER DOCTOR ALLEN AND ULTIMATELY WHAT I ADVISED WAS RIGHT FROM THE BEGINING THAT PAIN IS FROM SACROILITIS THAT IS FROM DECONDITIONING. AND NON COMPLIANCE OF DIET. SHE PROMISES ME TO EAT LIGHT,PALEO ORGANIC FOOD LOSE WEIGHT AND LOSE INFLAMMATION. SHE PROMISED ME NOT TO CANCEL RHEUMATOLGOSIT APT DR. DE LA CRUZ THAT SHE HAS DONE FOR A FEW TIMES. HER MRI FROM [facility] SHOWS ARITHRITIS OF SPINE AND NO SURGICAL ISSUES. Vital Signs/Physical Exam: Temp Pulse Resp BP Pulse Ox 97.0 F 98 H 18 105/62 95 06/04/21 08:00 06/04/21 08:00 06/04/21 08:00 06/04/21 08:00 06/04/21 08:00 Laboratory Data at Discharge: WBC 17.50 K/uL (4.3-10.9) H D 06/03/21 04:27 Hgb 12.7 g/dL (12.0-15.0) 06/03/21 04:27 Hct 38.6 % (36.0-45.0) 06/03/21 04:27 Plt Count 286 K/uL (152-406) 06/03/21 04:27 APTT 26.1 SECONDS (24.3-36.9) 05/31/21 17:57 Sodium Cancelled 06/03/21 15:30 Potassium Cancelled 06/03/21 15:30 BUN Cancelled 06/03/21 15:30 Creatinine Cancelled 06/03/21 15:30 Glucose Cancelled 06/03/21 15:30 Phosphorus 3.6 mg/dL (2.5-4.9) 05/31/21 17:57 Magnesium 2.4 mg/dL (1.8-2.4) 06/03/21 04:27 Total Bilirubin 0.4 mg/dL (0.2-1.0) 05/31/21 10:52 AST 15 U/L (15-37) 05/31/21 10:52 ALT 24 U/L (12-78) 05/31/21 10:52 Alkaline Phosphatase 138 U/L (45-117) H 05/31/21 10:52 Lipase 64 U/L (73-393) L 05/31/21 10:52 Home Medications: Ropinirole HCl [Requip*] 3 mg PO BID 03/12/15 Duloxetine HCl 1 cap PO BID 08/06/19 Hydrocodone/Acetaminophen [Hydrocodon-Acetaminophn 10-325] 0.5 tab PO BID 05/31/21 Levetiracetam [Keppra] 500 mg PO BEDTIME 05/31/21 Metaxalone [Skelaxin] 800 mg PO DAILY PRN 05/31/21 Trazodone HCl 1.5 tab PO BEDTIME 05/31/21 Insulin Glargine/Lixisenatide [Soliqua 100 Unit-33 Mcg/ml Pen] 30 units SQ DAILY 06/01/21 Ciprofloxacin HCl [Cipro 500 MG Tablet] 500 mg PO BID 5 Days #10 tab 06/04/21 New Medications: Ciprofloxacin HCl [Cipro 500 MG Tablet] 500 mg PO BID 5 Days #10 tab Followup: Qamar Taveras MD [Primary Care Provider] - (Call to schedule follow up appointment in one week.)
[2021-06-05 05:59] LABS: Albumin, (SPE) 3.1 g/dL (3.8-4.8); Alpha-1-Globulins 0.4 g/dL (0.2-0.3); Alpha-2-Globulins 1.1 g/dL (0.5-0.9); Gamma Globulins 0.8 g/dL (0.8-1.7); INTERPRETATION REPORT
[2021-06-05 10:55] LABS: Vitamin D 1,25-Dihydroxy Total 21 pg/mL (18-72); Vitamin D,1,25-OH2, D2 <8 pg/mL
--- NOTE | 2021-06-08 08:16 | EEG ---
CHART: [id number] TEST ID#: [id number] DATE OF STUDY: 06/03/2021 THE EEG WAS RECORDED PORTABLE IN THE PATIENT'S ROOM ON A 17 CHANNEL MACHINE. ELECTRODES WERE APPLIED IN THE USUAL MANNER USING THE INTERNATIONAL 10-20 SYSTEM. THE WAKING BACKGROUND RHYTHM IN THIS RECORD CONSISTS OF POORLY DEVELOPED AND POORLY ORGANIZED WAVES OF 8.5 HZ., MAXIMAL IN THE POSTERIOR HEAD REGIONS WHICH ATTENUATE NORMALLY WITH EYE OPENING. LOW-VOLTAGE 18-22 HZ ACTIVITIY IS EXPRESSED IN THE FORNTAL REGIONS. MODERATE VOLTAGE 1.5-3 HZ ACTIVITY IS EXPRESSED INTERMITTENTLY IN THE FRONTAL,CENTRAL AND TEMPORAL REGIONS. THERE ARE NO FOCAL OR LATERALIZING FEATURES. NO EPILEPTIFORM ACTIVITY APPEARS. SLEEP OCCURRED NATURALLY. IN ADDITION NORMAL SLEEP PATTERNS ARE PRESENT. HYPERVENTILATION WAS NOT PERFORMED. PHOTIC STIMULATION PRODUCED NO DRIVING BILATERALLY. IMPRESSION: THIS IS A MILDLY ABNORMAL ROUTINE EEG DUE TO THE PRESENCE OF A MILDLY SLOW BACKGROUND. THIS IS A NON-SPECIFIC FINDING INDICATING THE PRESENCE OF A MILD DIFFUSE DISTURBANCE IN CEREBRAL FUNCTION.
== END 2021-06-04 10:00 | disposition home health service (06) | DRG 551 ==
LOC: ER 09:54 → 2ND 13:54 → OBSVTOIN 06-02 12:28
PROVIDERS: ADMIT Internal Medicine; ATTEND Internal Medicine
DX: M54.16 Radiculopathy, lumbar region (principal); G93.41 Metabolic encephalopathy; N39.0 Urinary tract infection, site not specified; M25.50 Pain in unspecified joint; G25.81 Restless legs syndrome; E66.9 Obesity, unspecified; Z68.35 Body mass index [BMI] 35.0-35.9, adult; M46.1 Sacroiliitis, not elsewhere classified; E11.622 Type 2 diabetes mellitus with other skin ulcer; Z20.822 Contact with and (suspected) exposure to COVID-19
CPT/HCPCS: 0241U; 36415; 70551; 71045; 74177; 80048; 80076; 81003; 81015; 82607; 82652; 82947; 83036; 83690; 83735; 84100; 84165; 84443; 85025; 85652; 85730; 87077; 87086; 87088; 87186; 95819; 96374; 96375; 97110; 97116; 97161; 97530; 99285; G0378; J1100; J1170; J1650; J2405; Q9967

== ENCOUNTER 2021-07-13 12:58 | Emergency (ER) | payer OTHER ==
--- OUTSIDE RECORDS SUMMARY | 2021-07-13 13:03 | XMS REPORT | Continuity of Care Document ---
:1945 Author Organization [facility] t Address [address] [place] [address] Care Team Providers Name Role Phone Haroldo GILMORE, Raghu Primary Care Physician Dany GILMORE L Attending Clinician [place] DUGGAN Attending Clinician Unavailable Glenn GILMORE Attending Clinician JODI Attending Clinician Unavailable Chato GREEN Attending Clinician JODI Admitting Clinician Unavailable Payers Payer Name Policy Type Policy Number Effective Date Expiration Date [facility] [id number] Problems Condition Condition Condition Status Onset Resolution Last Treating Co mments Source Name Details Category Date Date Treatment Clinician Date Acquired Acquired Disease Active 2017-08 Unive rs hypothyroi hypothyroi 0-07 it y of dism dism 00:00: [place] 00 Medical Branch DM DM Disease Active 2007-08 [facility] 0 College 00:00: of 00 Medicin e ANXIETY ANXIETY Disease Active 2007-08 [facility] DISORDER, DISORDER, Tameka ege GENERALIZE GENERALIZE 00:00: of D D 00 Medicin e CHEST PAIN CHEST PAIN Disease Active 2007-08 [facility] College 00:00: 00 Medicin e Type 2 Type 2 Disease Active Univers diabetes diabetes ity of mellitus mellitus [place] with with Medical diabetic diabetic Branch neuropathy neuropathy , without , without long-term long-term current current use of use of insulin insulin Bursitis Bursitis Problem [facility] Impingemen Impingemen Problem Active [facility] t syndrome t syndrome Jyoti kes - of right of right Memori a shoulder shoulder l Outpati ent Clinics Nontraumat Nontraumat Problem Active [facility] - incomplete incomplete Me moria tear of tear of l right right Outpati rotator rotator ent cuff cuff Clinics Pain, Pain, Problem Active [facility] joint, joint, [facility] - shoulder, shoulder, Luis Miguel aisha right right l Outpati ent Clinics Allergies, Adverse Reactions, Alerts Allergy Allergy Status Severity Reaction(s) Onset Inactive Treating Comm ents Source Name Type Date Date Clinician Propoxyp Propensi Active Hallucinatio 2016-08 Univers hene Hcl ty to ns ity of adverse 00:00: [place] reaction 00 [facility] Branch Prometha Propensi Active Hallucinatio 2016-08 Univers zine ty to ns ity of adverse 00:00: [place] reaction 00 [facility] PROPOXYP DRUG Active Hallucinates 2016-08 Un edwin HENE HCL INGREDI ity of 00:00: [place] 00 Medical Branch PROMETHA DRUG Active Hallucinates 2016-08 Un edwin ZINE INGREDI ity of 00:00: [place] 00 [facility] Branch Ge Propensi Active 2007-08 DARVON. [facility] Uncoded ty to 0-02 [facility] Allergy adverse 00:00: of reaction 00 Medicin s e Phenerga Adverse Active Info Not [facility] Reaction Available [facility] Darvon Adverse Active Info Not [facility] Reaction Available [facility] Social History Social Habit Start Date Stop Date Quantity Comments Source Exposure to Not sure University of SARS-CoV-2 (event) [place] [facility] History [facility] o f Alcohol Frequency [facility] Branch History [facility] o f Alcohol Std Drinks [place] [facility] History [facility] o f Alcohol Binge [place] Medic al Branch Alcohol intake 2021-02-18 2021-02-18 [facility] Col lege of 00:00:00 00:00:00 Medicine Alcohol Comment 2018-03-28 2018-03-28 8 oz glass of Univer sity of 00:00:00 00:00:00 wine per night, [place] [facility] Cigarettes smoked 2018-03-28 2018-03-28 Univers ity of current (pack per 00:00:00 00:00:00 ) - Reported Branch Cigarette 2018-03-28 2018-03-28 University of pack-years 00:00:00 00:00:00 [facility] Tobacco use and 2015-10-02 2015-10-02 Never used [employer] [facility] of exposure 00:00:00 00:00:00 Medicine History of tobacco 1998-03-28 Cigarette Smoker University of use 00:00:00 [facility] Sex [birth year] At [birth year] Universit y of 00:00:00 00:00:00 [facility] Smoking Status Start Date Stop Date Source Former smoker 2018-03-28 00:00:00 2018-03-28 00:00:00 [facility] [place] Medications Ordered Filled Start Stop Current Ordering Indication Dosage Frequency Signature Comments Components Source Medication Medication Date Date Medication? Clinician (SIG) Name Name methylPREDN 2020-08 Yes [id number] 84mg Take 21 Univers ISolone 0-15 tablets by ity of (MEDROL, 00:00: mouth [place] EDWIN,) 4 mg 00 SEE-INSTRU Med ical tablets CTIONS. Branch follow package directions methylPREDN 2020-08 Yes [id number] 84mg Take 21 Univers ISolone 0-15 tablets by ity of (MEDROL, 00:00: mouth [place] EDWIN,) 4 mg 00 SEE-INSTRU Med ical tablets CTIONS. Branch follow package directions diclofenac 2020-08 Yes 75mg Take 1 Unive rs 75 mg EC 0-12 tablet by ity of tablet 00:00: mouth 2 (two) Medical times [place] daily with meals. diclofenac 2020-08 Yes 75mg Take 1 Unive rs 75 mg EC 0-12 tablet by ity of tablet 00:00: mouth 2 (two) Medical times [place] daily with meals. DULoxetine Yes 60mg Take 60 mg U nivers (CYMBALTA) 5-20 by mouth 2 ity of 60 mg 16:16: (two) [place] capsule 21 times Medical daily. Branch traMADOL 50 Yes 50mg Take 50 mg Univers mg tablet 5-20 by mouth 3 ity of 16:16: (three) [place] 21 times Medical daily. Branch DULoxetine 2019-0 Yes 60mg Take 60 mg U nivers (CYMBALTA) 5-20 by mouth 2 ity of 60 mg 16:16: (two) [place] capsule 21 times Medical daily. Branch traMADOL 50 2019-0 Yes 50mg Take 50 mg Univers mg tablet 5-20 by mouth 3 ity of 16:16: (three) [place] 21 times Medical daily. Branch azithromyci 2019- Yes [id number] 250mg Take 1 Univers n 250 mg 4-23 tablet by ity of tablet 00:00: mouth [place] 00 daily. Medical Take 500 Branch mg day 1, then 250 mg days 2 to 5. pregabalin 2019- Yes [id number] 75mg Take 1 Univers 75 mg 4-23 capsule by ity of capsule 00:00: mouth 3 00 (three) Medical times [place] daily. azithromyci Yes [id number] 250mg Take 1 Univers n 250 mg 4-23 tablet by ity of tablet 00:00: mouth 00 daily. Medical Take 500 Branch mg day 1, then 250 mg days 2 to 5. pregabalin 2019- Yes [id number] 75mg Take 1 Univers 75 mg 4-23 capsule by ity of capsule 00:00: mouth 3 00 (three) Medical times [place] daily. predniSONE 2018- Yes [id number] Take 1 U nivers 20 mg 4-01 tablets ity of tablet 00:00: daily for muscle Medical pain. Branch glimepiride Yes [id number] Take 2mg Univers 2 mg tablet 4-01 in am. If ity of 00:00: sugars 00 increase Medical with Branch prednisone increase to two tablets glimiperid e daily. predniSONE 2019- Yes [id number] Take 1 U nivers 20 mg 4-01 tablets ity of tablet 00:00: daily for muscle Medical pain. Branch glimepiride 2019- Yes [id number] Take 2mg Univers 2 mg tablet 4-01 in am. If ity of 00:00: sugars 00 increase Medical with Branch prednisone increase to two tablets glimiperid e daily. levothyroxi 2017-08 Yes [id number] 25ug Take 1 Univers ne 25 mcg 0-07 tablet by ity o f tablet 00:00: mouth [place] 00 every Medical morning. Branch levothyroxi 2017-08 Yes [id number] 25ug Take 1 Univers ne 25 mcg 0-07 tablet by ity o f tablet 00:00: mouth 00 every Medical morning. Branch levETIRAcet 2016-0 Yes 500mg Take 500 U nivers am 250 mg 6-22 mg by ity of tablet 00:00: mouth 2 [place] (two) Medical times [place] daily. levETIRAcet 2017 Yes 500mg Take 500 U nivers am 250 mg 6-22 mg by ity of tablet 00:00: mouth 2 [place] (two) Medical times [place] daily. rOPINIRole 2007-08 Yes take 1 Unive rs (REQUIP) 1 0-03 tablet p.o ity of mg tablet 00:00: TID [place] [facility] traZODONE 2007-08 Yes take 1 Univer s 100 mg 0-03 tablet p.o ity of tablet 00:00: bid [place] [facility] sitaGLIPtin 2007-08 Yes take one Un edwin (JANUVIA) 0-03 tablet ity of 100 mg 00:00: once a day [place] tablet 00 Medical Branch rOPINIRole 2007-08 Yes take 1 Unive rs (REQUIP) 1 0-03 tablet p.o ity of mg tablet 00:00: TID Medical Branch traZODONE 2007-08 Yes take 1 Univer s 100 mg 0-03 tablet p.o ity of tablet 00:00: bid Medical Branch REQUIP 1 MG 2007-08 Yes take 1 [facility] OR TABS 0-03 tablet p.o Colleg e 00:00: qid of 00 Medicin e JANUVIA 100 2007-08 Yes take 1 [facility] MG OR TABS 0-03 tablet p.o Col lege 00:00: qid of 00 Medicin e TRAZODONE 2007-08 Yes take 1 Jason HCL 100 MG 0-03 tablet p.o Col lege PO TABS 00:00: bid of 00 Medicin e sitaGLIPtin 2007-08 Yes take one Un edwin (JANUVIA) 0-03 tablet ity of 100 mg 00:00: once a day [place] tablet 00 Medical Branch ZOLOFT 100 2007-08- No take 1 [facility] MG OR TABS 0-03 07-15 tablet p.o Co llege 00:00: 00:00 qd of 00 :00 Medicin e Ropinirole Ropinirole Yes Yogesh not [facility] HCl HCl Sarah defined [facility] Januvia Januvia Yes Yogesh not [facility] Sarah defined [facility] Tramadol Tramadol Yes Yogesh not [facility] HCl HCl Sarah defined [facility] Levetiracet Levetiracet Yes Yogesh not [facility] am am Sarah defined [facility] Duloxetine Duloxetine Yes Yogesh not [facility] HCl HCl Sarah defined [facility] Trazodone Trazodone Yes Yogesh not [facility] HCl HCl Sarah defined [facility] Immunizations Ordered Filled Immunization Date Status Comments Sourc e Immunization Name Name Influenza High Dose 2018-05-07 Completed Unive rsity of 00:00:00 [facility] Influenza High Dose 2018-05-07 Completed Unive rsity of 00:00:00 [facility] Pneumococcal 13 2018-03-28 Completed Universit y of Conjugate, PCV13 00:00:00 [facility] dical (Prevnar 13) Branch Pneumococcal 13 2018-03-28 Completed Universit y of Conjugate, PCV13 00:00:00 [facility] dical (Prevnar 13) Branch Td 2017-08-04 Completed [facility] 00:00:00 [facility] Td 2017-08-04 Completed [facility] 00:00:00 [facility] Vital Signs Vital Name Observation Time Observation Value Comments Source Body height 2021-05-21 16:04:00 160 cm [facility] Body weight 2021-05-21 16:04:00 89.359 kg [facility] BMI 2021-05-21 16:04:00 34.90 kg/m2 [facility] Body height 2021-02-18 16:48:00 [facility].5 cm [facility] weight 2021-02-18 16:48:00 [facility]647 [facility] BMI 2021-02-18 16:48:00 32.92 kg/m2 [facility] Body height 2021-02-18 16:48:00 157.5 cm [facility] C ollege of Medicine Body weight 2021-02-18 16:48:00 81.647 kg [facility] ollege of Medicine BMI 2021-02-18 16:48:00 32.92 kg/m2 [facility] ollege of [facility] Procedures This patient has no known procedures. Plan of Care Planned Activity Planned Date Details Comments Source Future Scheduled 2021-02-18 COVID-19 Vaccine (1) [facility] of Test 12:16:06 [code = COVID-19 Medicine Vaccine (1)] Future Scheduled 2021-02-18 Diabetic foot [facility] Col lege of Test 12:16:06 examination Medicine (regime/therapy) [code = 423589211] Future Scheduled 2021-02-18 ANNUAL DIABETIC [facility] C ollege of Test 12:16:06 RETINOPATHY SCREENING Medici ne [code = ANNUAL DIABETIC RETINOPATHY SCREENING] Future Scheduled 2021-02-18 BMI FOLLOW UP PLAN [facility] of Test 12:16:06 [code = BMI FOLLOW UP Medici ne PLAN] Future Scheduled 2021-02-18 Hepatitis C screening [facility] Test 12:16:06 (procedure) [code = Medicine [id number]] Future Scheduled 2021-02-18 ZOSTER VACCINE (1 of [facility] of Test 12:16:06 2) [code = ZOSTER Medicine VACCINE (1 of 2)] Future Scheduled 2021-02-18 FALL SCREEN [code = [facility] of Test 12:16:06 FALL SCREEN] Medicine Future Scheduled 2021-02-18 Screening for [facility] Col lege of Test 12:16:06 osteoporosis Medicine (procedure) [code = [id number]] Future Scheduled 2021-02-18 PNEUMOVAX >=65 [facility] Co llege of Test 12:16:06 (PPSV23) [code = Medicine PNEUMOVAX >=65 (PPSV23)] Future Scheduled 2021-02-18 FLU VACCINE > 6 MONTHS B [facility] of Test 12:16:06 [code = FLU VACCINE > Medici ne 6 MONTHS] Future Scheduled 2021-02-18 TETANUS SHOT (ADULT) [facility] of Test 12:16:06 [code = TETANUS SHOT Medicin e (ADULT)] Encounters Start End Encounter Admission Attending Care Care Encounter Source Date/Time Date/Time Type Type Clinicians Facility Department ID 2021-07-08 2021-07-08 Telephone AD Duggan [id number] [facility] 00:00:00 00:00:00 Heather STOVER [id number] it y of [place] [id number] Dmitriy as MILAN?BLEA [phone] Tn jesus BARON [address] [place] [address] OFFICE [facility] 2021-05-21 2021-05-21 [facility] [id number] [facility] 11:00:00 12:04:43 HEATHER corado [facility] [place] 2021-05-21 2021-05-21 [facility] [id number] [facility] 10:59:36 12:04:43 Visit Heather STOVER [id number] it y of CHRISTI [id number] Dmitriy as MILAN?BLEA [id number] Tn jesus BARON [address] [place] [address] 2021-02-18 2021-02-18 Office Brittney Elizabeth [id number] 11:42:20 11:57:20 Visit AMBULATOR [id number] Y [id number] [facility] 2021-02-18 2021-02-18 Office Brittney Elizabeth [id number] [facility] 11:42:20 11:57:20 Visit AMBULATOR [id number] College Y [id number] of [id number] [facility] 300 e 2021-01-13 2021-01-13 Outpatient [facility] [place] 03:26:00 03:26:00 _L 0609 [facility] 2021-01-12 2021-01-12 Outpatient [facility] [place] 12:01:00 12:01:00 _L 0608 [facility] 2020-04-26 2020-04-26 Emergency [facility] [id number] 18:37:00 21:14:00 [place] [place] [id number] [place] [id number] [place] [id number] 2019-02-19 2019-02-19 [facility] [id number] [facility] 12:03:00 12:03:00 [facility] Clinics 2019-02-18 2019-02-18 [facility] [id number] 14:00:00 14:00:00 t [facility] 2019-02-14 2019-02-14 [facility] [id number] 11:39:00 11:39:00 t [facility] ent Clinics 2019-02-12 2019-02-12 [facility] [id number] [address] 08:00:00 08:00:00 t [facility] Clinics 2019-02-08 2019-02-08 [facility] [id number] 08:30:00 08:30:00 t [facility] Results This patient has no known results.
[2021-07-13] MEDS ORDERED: NA CHLORIDE 0.9% 1,000 ML ONE (13:34)
[2021-07-13 14:03] LABS: Absolute Lymphocytes (CBC) 1.1 K/uL (0.7-4.9); Basophils % 0.6 % (0-1.3); Hematocrit 39.6 % (36.0-45.0); Lymphocytes % 13.8 % (15.3-44.8); MPV 8.7 fL (7.6-11.3); RBC Red Blood Cell Count 4.51 M/uL (3.86-4.86)
[2021-07-13 14:09] LABS: Protime INR 0.91
[2021-07-13 14:33] LABS: ALT/SGPT 31 U/L (12-78); AST/SGOT 17 U/L (15-37); Albumin 2.8 g/dL (3.4-5.0); Alkaline Phosphatase 149 U/L (45-117); BUN Blood Urea Nitrogen 22 mg/dL (7-18); Bicarbonate 29 mmol/L (21-32); Bilirubin Direct < 0.1 mg/dL (0-0.2); Bilirubin Total 0.3 mg/dL (0.2-1.0); Glucose Level 87 mg/dL (74-106); Magnesium 2.1 mg/dL (1.8-2.4); NT PRO-BNP 81 pg/mL (<450); Potassium 3.8 mmol/L (3.5-5.1); Protein, Total 6.9 g/dL (6.4-8.2); Sodium Level 144 mmol/L (136-145); Troponin (Emerg Dept Use Only) < 0.02 ng/mL (0.0-0.045)
--- NOTE | 2021-07-13 15:16 | RAD REPORT ---
EXAM DESCRIPTION: CT - Chest For Pe Angio - 07/13/2021 2:50 pm CLINICAL HISTORY: sob COMPARISON: 2007 TECHNIQUE: Dynamically enhanced axial 3 mm thick images of the chest were obtained during administra tion of <100> mL Isovue 370 IV contrast. Coronal and oblique reconstruction images were generated and reviewed. Exam utilizes a protocol for optimal evaluation of pulmonary arterial tree. Maximum intensity projections 3D imaging was utilized All CT scans are performed using dose optimization technique as appropriate and may include automated exposure control or mA/KV adjustment according to patient size. FINDINGS: A pulmonary embolus is not seen. A thoracic aortic aneurysm is not noted. A pleural effusion is not seen. A pericardial effusion is not seen. A lung consolidation is not present. A few areas of subsegmental atelectasis within the lung bases IMPRESSION: Negative for a pulmonary embolism.
--- NOTE | 2021-07-13 15:17 | RAD REPORT ---
EXAM DESCRIPTION: [facility] Single View07/13/2021 2:15 pm CLINICAL HISTORY: Cough COMPARISON: May 2021 FINDINGS: A few areas of subsegmental atelectasis within the lung bases. Upper lobes appear clear. Heart is normal size
[2021-07-13 15:27] LABS: SARS-COV-2 RT PCR NEGATIVE (NEGATIVE)
--- NOTE | 2021-07-13 16:16 | RAD REPORT ---
EXAM DESCRIPTION: MRI - Hip Bilat Wo Cont - 07/13/2021 4:01 pm CLINICAL HISTORY: Hip pain COMPARISON: None TECHNIQUE: Axial sagittal and coronal magnetic resonance imaging of the pelvis performed FINDINGS: Abnormal signal involves the right and left sacral ala extending midline compatible with i nsufficiency fractures. Abnormal signal involves the medial aspect of the right and left pubic bone near the symphysis pubis consistent with insufficiency fractures Femora demonstrate normal signal. Strains involve the right and left external obturator muscles IMPRESSION: Sacral insufficiency fractures Pubic bone insufficiency fractures
--- NOTE | 2021-07-13 16:42 | RAD REPORT ---
EXAM DESCRIPTION: MRI - Lumbar Spine Wo Con - 07/13/2021 4:33 pm CLINICAL HISTORY: Radiculopathy and back pain. COMPARISON: None. TECHNIQUE: Sagittal T1, T2 and STIR weighted sequences were obtained. Axial T1 and T2 sequences were obtained through the lumbar disc levels. FINDINGS: Mild spondylosis involves the lumbar spine. No fracture or dislocation involving the lumbar spine No significant central/foraminal stenosis. No abnormal signal within the bones IMPRESSION: Mild spondylosis involves the lumbar spine
[2021-07-13 17:15] LABS: Arterial Blood Carboxyhemoglob 1.1 % (0-1.5); Blood Gas Oxyhemoglobin 93.1 % (94-97); Blood O2 Saturation 95.3 % (92-98.5)
--- NOTE | 2021-07-13 17:18 | RAD REPORT ---
EXAM DESCRIPTION: USExtrem Venous W Compress Bil07/13/2021 5:08 pm CLINICAL HISTORY: Leg pain COMPARISON: 2019 FINDINGS: The common femoral, superficial femoral, popliteal and posterior tibial veins bilaterally are compressible and demonstrate augmentation. Doppler demonstrates good flow. IMPRESSION: No evidence of deep venous thrombosis involving either lower extremity.
--- NOTE | 2021-07-13 17:55 | ER ---
Nurse's Notes [facility] Kishan Name: Bill Deal Age: 75 yrs Sex: Female : 1945 Arrival Date: 07/13/2021 Time: 12:59 Bed 14 Private MD: Diagnosis: Fracture of other parts of pelvis-bilateral sacral ala;Dyspnea;Type 2 diabetes mellitus with hyperglycemia;Unspecified kidney failure-insufficency Presentation: 07/13 12:50 Chief complaint: EMS states: Patient sent in by PCP to be evaluated due to low spo2 jg9 readings x4 days. Per EMS patient spo2 94% on room air, placed on 4L spo2 increased to 97%. Patient was in NAD and reports sob ongoing for "a while". Coronavirus screen: Vaccine status: Patient reports receiving the 2nd dose of the covid vaccine. Patient reports receiving the 1st dose of the Covid vaccine. Ebola Screen: Patient negative for fever greater than or equal to 101.5 degrees Fahrenheit, and additional compatible Ebola Virus Disease symptoms Patient denies exposure to infectious person. Patient denies travel to an Ebola-affected area in the 21 days before illness onset. Initial Sepsis Screen: Does the patient meet any 2 criteria? No. Patient's initial sepsis screen is negative. 12:50 Method Of Arrival: [facility] jg9 13:00 Acuity: UDAY 3 jg9 13:00 Onset of symptoms is unknown. jg9 13:00 Initial Sepsis Screen: Does the patient meet any 2 criteria?. Risk Assessment: Do you jg9 want to hurt yourself or someone else? Patient reports no desire to harm self or others. 13:00 Initial Sepsis Screen: Does the patient have a suspected source of infection? No. jg9 Patient's initial sepsis screen is negative. Triage Assessment: 12:50 General: Appears in no apparent distress. Behavior is calm, cooperative, appropriate jg9 for age. Pain: Denies pain. EENT: No deficits noted. Neuro: No deficits noted. Cardiovascular: No deficits noted. Respiratory: Reports shortness of breath ongoing for "a while" Breath sounds are diminished bilaterally. GI: No deficits noted. : No deficits noted. Derm: No deficits noted. Musculoskeletal: Reports pain in right leg and left leg-pain in inner thigh region ongoing, chronic back pain. Historical: - Allergies: 13:08 PENICILLINS; jg9 13:08 Phenergan; jg9 - PMHx: 13:08 restless leg syndrome; Diabetes mellitus; jg9 - Immunization history:: Adult Immunizations Client reports receiving the 2nd dose of the Covid vaccine, Client reports receiving the 1st dose of the Covid vaccine, Pneumococcal vaccine is not up to date, Flu vaccine is not up to date. - Social history:: Smoking status: Patient denies any tobacco usage or history of. - Family history:: not pertinent. Screenin:00 Abuse screen: Denies threats or abuse. Denies injuries from another. Nutritional jg9 screening: No deficits noted. Tuberculosis screening: No symptoms or risk factors identified. Fall Risk None identified. Assessment: 12:55 General: Appears in no apparent distress. General: Behavior is calm, cooperative, jg9 appropriate for age. Pain: Complains of pain in right leg and left leg-pt has chronic back pain and reports pain to inner thighs ongoing as well. Neuro: No deficits noted. Cardiovascular: No deficits noted. Respiratory: Parent/caregiver reports the patient having EMS-low spo2 x4 days. GI: No deficits noted. : No deficits noted. EENT: No deficits noted. Derm: No deficits noted. Musculoskeletal: Reports pain in back, right leg and left leg. Vital Signs: 12:50 BP 167 / 92; Pulse 92; Resp 20 S; Pulse Ox 94% on R/A; jg9 13:00 BP 167 / 92; Pulse 91; Resp 20 S; Pulse Ox 94% on R/A; Weight 72.57 kg (R); Height 5 j9 ft. 3 in. (160.02 cm) (R); 14:00 BP 172 / 87; Pulse 93; Resp 18 S; Pulse Ox 99% on R/A; jg9 17:00 BP 168 / 84; Pulse 96; Resp 20; Pulse Ox 99% on R/A; jg9 18:00 BP 158 / 70; Pulse 94; Resp 20 S; Pulse Ox 98% on R/A; jg9 13:00 Body Mass Index 28.34 (72.57 kg, 160.02 cm) j9 ED Course: 12:59 Patient arrived in ED. j9 13:02 Francesco Villalba MD is Attending Physician. [facility] 13:02 Cristine Kim is Primary Nurse. jg9 13:11 Arm band placed on right wrist. jg9 13:14 Triage completed. jg9 13:14 Patient has correct armband on for positive identification. Placed in gown. Bed in low jg9 position. Call light in reach. Side rails up X 1. 13:15 Inserted saline lock: 22 gauge in right antecubital area, using aseptic technique. jg9 14:15 XRAY Chest (1 view) In Process Unspecified. EDMS 14:43 Patient fluids stopped patient going to CT and MRI. jg9 14:50 CT Chest For PE Angio In Process Unspecified. EDMS 15:02 COVID-19/FLU A+B/RSV Sent. kj1 16:01 Hip Bilat Wo Cont In Process Unspecified. EDMS 16:33 Lumbar Spine Wo Con In Process Unspecified. EDMS 17:07 US Extremity Venous W Compression [place] In Process Unspecified. EDMS 17:15 Inserted saline lock: 22 gauge in right forearm, using aseptic technique. jg9 18:23 Basic Metabolic Panel Sent. jg9 18:23 CBC with Diff Sent. jg9 18:23 LFT's Sent. jg9 18:23 Magnesium Sent. jg9 19:02 No provider procedures requiring assistance completed. jg9 19:02 IV discontinued. jg9 Administered Medications: 18:43 Discontinued: NS 0.9% 1000 ml IV at 125 ml/hr continuous jg9 18:42 Discontinued: NS 0.9% 1000 ml IV at 1 bolus Per protocol; 1000 mL bolus jg9 14:05 Drug: NS 0.9% 1000 ml Route: IV; Rate: 125 ml/hr; Site: right antecubital; jg9 17:18 Drug: NS 0.9% 1000 ml Route: IV; Rate: 1 bolus; Site: right forearm; jg9 18:42 Follow up: IV Status: Order to discontinue infusion; IV Intake: 700ml jg9 19:03 Follow up: IV Status: Order to discontinue infusion jg9 19:03 Follow up: IV Intake: 500ml jg9 18:05 Drug: Decadron - Dexamethasone 6 mg Route: IVP; Site: right forearm; jg9 18:22 Follow up: Response: No adverse reaction jg9 18:42 Drug: Mucomyst - Acetylcysteine 600 mg Route: PO; jg9 19:03 Follow up: Response: No adverse reaction jg9 Intake: 18:42 IV: 700ml; Total: 700ml. jg9 19:03 IV: 500ml; Total: 1200ml. jg9 Outcome: 17:54 Discharge ordered by . rubén 19:02 Discharged to home via wheelchair, with family. jg9 19:02 Admitted to 19:02 Condition: stable 19:02 Discharge instructions given to patient, family, Instructed on discharge instructions, follow up and referral plans. Demonstrated understanding of instructions, follow-up care, Prescriptions given X 3. 19:04 Patient left the ED. jg9 Signatures: Dispatcher [employer] EDFrancesco Phipps MD MD cha Mickail, Joel, PA PA jmm Jackson, Kandis kj1 Cristine Kim jg9
--- NOTE | 2021-07-13 17:55 | EDPHYS ---
Physician Documentation [facility] Name: Bill Deal Age: 75 yrs Sex: Female : 1945 Arrival Date: 07/13/2021 Time: 12:59 Bed 14 Private MD: ED Physician Francesco Villalba HPI: 07/13 17:44 This 75 yrs old Female presents to ER via EMS with complaints of Low O2. rubén 17:44 The patient or guardian reports pain. that occurred at an unknown site, sustained from [facility] unknown reason. The complaints affect the buttocks. Onset: The symptoms/episode began/occurred 1 month(s) ago. Modifying factors: The symptoms are alleviated by remaining still, the symptoms are aggravated by nothing. The patient has shortness of breath at rest. Onset: The symptoms/episode began/occurred 1 day(s) ago. Associated signs and symptoms: Pertinent positives: non-productive cough. Severity of symptoms: At their worst the symptoms were mild moderate in the emergency department the symptoms are unchanged. Historical: - Allergies: 13:08 PENICILLINS; jg9 13:08 Phenergan; jg9 - PMHx: 13:08 restless leg syndrome; Diabetes mellitus; jg9 - Immunization history:: Adult Immunizations Client reports receiving the 2nd dose of the Covid vaccine, Client reports receiving the 1st dose of the Covid vaccine, Pneumococcal vaccine is not up to date, Flu vaccine is not up to date. - Social history:: Smoking status: Patient denies any tobacco usage or history of. - Family history:: not pertinent. ROS: 17:44 Constitutional: Negative for fever, chills, and weight loss, Eyes: Negative for injury, rubén pain, redness, and discharge, ENT: Negative for injury, pain, and discharge, Neck: Negative for injury, pain, and swelling, Cardiovascular: Negative for chest pain, palpitations, and edema, Abdomen/GI: Negative for abdominal pain, nausea, vomiting, diarrhea, and constipation, Back: Negative for injury and pain, : Negative for injury, bleeding, discharge, and swelling, Skin: Negative for injury, rash, and discoloration, Neuro: Negative for headache, weakness, numbness, tingling, and seizure, Psych: Negative for depression, anxiety, suicide ideation, homicidal ideation, and hallucinations, Allergy/Immunology: Negative for hives, rash, and allergies, Endocrine: Negative for neck swelling, polydipsia, polyuria, polyphagia, and marked weight changes, Hematologic/Lymphatic: Negative for swollen nodes, abnormal bleeding, and unusual bruising. 17:44 Respiratory: Positive for cough, shortness of breath, at rest. 17:44 MS/extremity: Positive for decreased range of motion, pain, of the buttocks. Exam: 17:44 Constitutional: This is a well developed, well nourished patient who is awake, alert, rubén and in no acute distress. Head/Face: Normocephalic, atraumatic. Eyes: Pupils equal round and reactive to light, extra-ocular motions intact. Lids and lashes normal. Conjunctiva and sclera are non-icteric and not injected. Cornea within normal limits. Periorbital areas with no swelling, redness, or edema. ENT: Nares patent. No nasal discharge, no septal abnormalities noted. Tympanic membranes are normal and external auditory canals are clear. Oropharynx with no redness, swelling, or masses, exudates, or evidence of obstruction, uvula midline. Mucous membranes moist. Neck: Trachea midline, no thyromegaly or masses palpated, and no cervical lymphadenopathy. Supple, full range of motion without nuchal rigidity, or vertebral point tenderness. No Meningismus. Chest/axilla: Normal chest wall appearance and motion. Nontender with no deformity. No lesions are appreciated. Cardiovascular: Regular rate and rhythm with a normal S1 and S2. No gallops, murmurs, or rubs. Normal PMI, no JVD. No pulse deficits. Respiratory: Lungs have equal breath sounds bilaterally, clear to auscultation and percussion. No rales, rhonchi or wheezes noted. No increased work of breathing, no retractions or nasal flaring. Abdomen/GI: Soft, non-tender, with normal bowel sounds. No distension or tympany. No guarding or rebound. No evidence of tenderness throughout. Back: No spinal tenderness. No costovertebral tenderness. Full range of motion. Skin: Warm, dry with normal turgor. Normal color with no rashes, no lesions, and no evidence of cellulitis. MS/ Extremity: Pulses equal, no cyanosis. Neurovascular intact. Full, normal range of motion. Neuro: Awake and alert, GCS 15, oriented to person, place, time, and situation. Cranial nerves II-XII grossly intact. Motor strength 5/5 in all extremities. Sensory grossly intact. Cerebellar exam normal. Normal gait. Psych: Awake, alert, with orientation to person, place and time. Behavior, mood, and affect are within normal limits. 17:44 Musculoskeletal/extremity: DVT Exam: No signs of deep vein thrombosis. no pain, no swelling, no tenderness, negative Homans' sign noted on exam, no appreciated bluish discoloration, no erythema, no increased warmth. 18:27 ECG was reviewed by the Attending Physician. [facility] Vital Signs: 12:50 BP 167 / 92; Pulse 92; Resp 20 S; Pulse Ox 94% on R/A; jg9 13:00 BP 167 / 92; Pulse 91; Resp 20 S; Pulse Ox 94% on R/A; Weight 72.57 kg (R); Height 5 9 ft. 3 in. (160.02 cm) (R); 14:00 BP 172 / 87; Pulse 93; Resp 18 S; Pulse Ox 99% on R/A; 9 17:00 BP 168 / 84; Pulse 96; Resp 20; Pulse Ox 99% on R/A; 9 18:00 BP 158 / 70; Pulse 94; Resp 20 S; Pulse Ox 98% on R/A; 9 13:00 Body Mass Index 28.34 (72.57 kg, 160.02 cm) 9 MDM: 13:18 Patient medically screened. [facility] 17:48 Differential diagnosis: bursitis, arthritis, strain, asthma, Bronchitis CHF rubén exacerbation, Chronic Obstructive Pulmonary Disease pneumonia. Antibiotic administration: Not indicated. The patient's Wells Deep Vein Thrombosis Score was calculated as follows: Total Score: 0-2 Pts- Low Risk. The patient's pulmonary embolism risk score was calculated as follows: Total Score: 0-2 points. This patient was found to be at low risk for a pulmonary embolism by using the Well's assessment criteria. Immunization status: Pneumococcal vaccine: Influenza vaccine: Data reviewed: vital signs, nurses notes, lab test result(s), EKG, radiologic studies, CT scan, doppler, MRI, plain films. Data interpreted: monitor tech: rate is 96 beats/min, rhythm is regular, Pulse oximetry: on room air is 99 %. Test interpretation: by ED physician or midlevel provider: ECG, plain radiologic studies. Counseling: I had a detailed discussion with the patient and/or guardian regarding: the historical points, exam findings, and any diagnostic results supporting the discharge/admit diagnosis, lab results, radiology results, the need for outpatient follow up, for definitive care, an utility aide, a neurosurgeon. 07/13 13:22 Order name: Basic Metabolic Panel [facility] 07/13 13:22 Order name: CBC with Diff [facility] 07/13 13:22 Order name: LFT's [facility] 07/13 13:22 Order name: Magnesium [facility] 07/13 13:22 Order name: NT PRO-BNP; Complete Time: 14:39 [facility] 07/13 13:22 Order name: PT-INR; Complete Time: 14:39 [facility] 07/13 13:22 Order name: Troponin (emerg Dept Use Only); Complete Time: 14:39 [facility] 07/13 13:22 Order name: D-Dimer; Complete Time: 14:39 [facility] 07/13 13:22 Order name: Blood Culture Adult (2) [facility] 07/13 13:22 Order name: Lactate; Complete Time: 14:39 [facility] 07/13 13:22 Order name: Urine Culture [facility] 07/13 13:22 Order name: XRAY Chest (1 view); Complete Time: 15:27 [facility] 07/13 13:23 Order name: Basic Metabolic Panel; Complete Time: 14:39 [facility] 07/13 13:23 Order name: CBC with Automated Diff; Complete Time: 14:39 [facility] 07/13 13:23 Order name: Liver (Hepatic) Function; Complete Time: 14:39 [facility] 07/13 13:23 Order name: Magnesium; Complete Time: 14:39 [facility] 07/13 13:42 Order name: Lumbar Spine Wo Con; Complete Time: 17:34 [facility] 07/13 14:12 Order name: Hip Bilat Wo Cont; Complete Time: 17:35 [facility] 07/13 14:16 Order name: US Extremity Venous W Compression [place]; Complete Time: 17:35 [facility] 07/13 14:16 Order name: CT Chest For PE Angio; Complete Time: 15:27 [facility] 07/13 14:42 Order name: COVID-19/FLU A+B/RSV; Complete Time: 15:27 [facility] 07/13 16:52 Order name: ABG; Complete Time: 18:00 [facility] 07/13 17:57 Order name: Urine Dipstick-Ancillary; Complete Time: 18:00 [facility] 07/13 13:22 Order name: EKG; Complete Time: 13:24 [facility] 07/13 13:22 Order name: Cardiac monitoring; Complete Time: 18:23 [facility] 07/13 13:22 Order name: EKG - Nurse/Tech [facility] 07/13 13:22 Order name: IV Saline Lock; Complete Time: 14:19 [facility] 07/13 13:22 Order name: Labs collected and sent; Complete Time: 14:19 [facility] 07/13 13:22 Order name: O2 Sat Monitoring; Complete Time: 14:19 [facility] 07/13 13:22 Order name: Urine Dipstick-Ancillary (obtain specimen) [facility] EC:27 Rate is 94 beats/min. Rhythm is regular. QRS [place] is Normal. NE interval is normal. QRS rubén interval is normal. QT interval is normal. No Q waves. T waves are Normal. No ST changes noted. Clinical impression: NSR w/ Non-specific ST/T Changes and No evidence of ischemia. Interpreted by me. Reviewed by me. Administered Medications: 18:43 Discontinued: NS 0.9% 1000 ml IV at 125 ml/hr continuous jg9 18:42 Discontinued: NS 0.9% 1000 ml IV at 1 bolus Per protocol; 1000 mL bolus jg9 14:05 Drug: NS 0.9% 1000 ml Route: IV; Rate: 125 ml/hr; Site: right antecubital; jg9 17:18 Drug: NS 0.9% 1000 ml Route: IV; Rate: 1 bolus; Site: right forearm; jg9 18:42 Follow up: IV Status: Order to discontinue infusion; IV Intake: 700ml jg9 19:03 Follow up: IV Status: Order to discontinue infusion jg9 19:03 Follow up: IV Intake: 500ml jg9 18:05 Drug: Decadron - Dexamethasone 6 mg Route: IVP; Site: right forearm; jg9 18:22 Follow up: Response: No adverse reaction jg9 18:42 Drug: Mucomyst - Acetylcysteine 600 mg Route: PO; jg9 19:03 Follow up: Response: No adverse reaction jg9 Disposition Summary: 07/13/21 17:54 Discharge Ordered Location: Home rubén Problem: new rubén Symptoms: have improved rubén Condition: Stable rubén Diagnosis - Fracture of other parts of pelvis - bilateral sacral ala rubén - Dyspnea rubén - Type 2 diabetes mellitus with hyperglycemia rubén - Unspecified kidney failure - insufficency rubén Followup: rubén - With: Private Physician - When: 2 - 3 days - Reason: Recheck today's complaints, Continuance of care, Re-evaluation by your physician Discharge Instructions: - Discharge Summary Sheet rubén - Type 2 Diabetes Mellitus, Diagnosis, Adult rubén - High-Fiber Diet rubén - Hyperglycemia rubén - Hyperglycemic Hyperosmolar State rubén - Stress Fracture rubén - Diabetes Mellitus and Nutrition, Adult [facility] Forms: - Medication Reconciliation Form rubén - Thank You Letter rubén - Antibiotic Education rubén - Prescription Opioid Use [facility] Prescriptions: - dexamethasone 2 mg Oral tablet - take 1 tablet by ORAL route 2 times per day; 10 tablet; Refills: 0, Product rubén Selection Permitted - Skelaxin 800 mg Oral Tablet - take 1 tablet by ORAL route every 8 hours As needed; 21 tablet; Refills: 0, [facility] Product Selection Permitted - Tylenol-Codeine #3 300 mg-30 mg Oral - take 2 tablet by ORAL route every 4-6 hours; 20 tablet; Refills: 0, Product rubén Selection Permitted Signatures: Dispatcher [employer] EDFrancesco Phipps MD MD cha Gilmore, Jennifer jg9 Corrections: (The following items were deleted from the chart) 14:15 13:25 Hip Right Wo Cont ordered. EDMS EDMS 14:42 13:24 SARS-COV-2 RT PCR+MOL.LAB.BRZ ordered. EDMS EDMS 14:42 13:24 Respiratory Syncytial Virus Ag+BA.LAB.BRZ ordered. EDMS EDMS 14:42 13:24 Influenza Screen (A \T\ B)+BA.LAB.BRZ ordered. EDMS EDMS 14:56 13:42 Pelvis Wo Cont ordered. EDMS EDMS 17:19 15:29 IS+RC.RAD.BRZ ordered. EDMS EDMS
[2021-07-13 17:57] LABS: Urine Blood Negative (Negative); Urine Glucose Negative (Negative); Urine Protein Negative (Negative); Urine Specific Gravity >=1.030 (1.005-1.030); Urine pH 5.5 (5.0-7.0)
[2021-07-13] MEDS ORDERED: dexAMETHasone 10 MG/ML VIAL ONE (18:03)
[2021-07-13] MEDS ORDERED: ACETYLCYST 20% 800 MG/4 ML VIAL PO ONE (19:00)
[2021-07-13 19:31] VITALS: BP 158/70; O2SAT 98
--- NOTE | 2021-07-14 12:04 | EKG ---
Test Date: 2021-07-13 Test Time: 14:28:16 Wharf Builder: GORDO MEASUREMENT RESULTS: Intervals: Rate: 94 [place]: 138 QRSD: 76 QT: 358 QTc: 447 [place]: P: 28 [place]: 138 QRS: 23 T: 56 INTERPRETIVE STATEMENTS: Normal sinus rhythm Normal ECG Compared to ECG 04/25/2008 11:07:53 Left ventricular hypertrophy no longer present Electronically Signed On 07-14-21 12:02:51 [employer] by Cooper Menjivar
== END 2021-07-13 19:04 | disposition home or self-care (01) ==
LOC: ER 12:58
DX: R06.00 Dyspnea, unspecified (principal); S32.89XA Fracture of other parts of pelvis, initial encounter for closed fracture; E11.65 Type 2 diabetes mellitus with hyperglycemia; N19 Unspecified kidney failure; Z20.822 Contact with and (suspected) exposure to COVID-19; Z88.0 Allergy status to penicillin; Z88.8 Allergy status to other drugs, medicaments and biological substances
CPT/HCPCS: 96361; 93005; 87040 ×2; 87088; 85025; 87086; 80048; 36415; 83735; 85610; 85379; 80076; 83605; 81003; 84484; 83880; 0241U; 71275; 71045; 93970; 72148; 73721; 82805; 96374; 99285; Q9967; J1100; J7030